=== PATIENT | female | born 1940 | race Caucasian/White ===

== ENCOUNTER 2017-11-10 11:27 | Emergency (ER) | payer MEDICARE, OTHER ==
[2017-11-10 11:35] VITALS: BP 122/67
--- NOTE | 2017-11-10 12:09 | EDM.PDOC ---
ED HPI GENERAL MEDICAL PROBLEM - General Chief Complaint: Cardiovascular Problem Stated Complaint: IN BY AMBULANCE Time Seen by Provider: 11/10/17 11:50 Source of Information: Reports: Patient History Limitations: Reports: No Limitations - History of Present Illness INITIAL COMMENTS - FREE TEXT/NARRATIVE: This 77 yo female patient was brought to the ED by [facility] due to an episode of syncope. The patient reports she was at the foot doctor this morning when she started to feel extremely warm, then she remembers someone getting her a wet towel. The patient reports the next thing she remembers is the ambulance taking her to the ED. The patient reports she has been under increased stress over the past month due to 2 hospitalizations of her and 1 hospitalization herself. The patient reports that she does not have a history of previous similar episodes. The patient reports she currently feels normal with no chest pain or other symptoms. Onset: Today Duration: Resolved Prior to Arrival Location: Reports: Generalized Quality: Reports: Other Severity: Moderate Improves with: Reports: None Worsens with: Reports: None Associated Symptoms: Reports: No Other Symptoms - Related Data Allergies Allergy/AdvReac Type Severity Reaction Status Date / Time Morpholine Analogues Allergy Change Verified 11/09/14 20:32 Mental Status Home Meds: Home Meds Aspirin [Adult Low Dose Aspirin EC] 81 mg PO DAILY 11/09/14 [History] Clopidogrel [Plavix] 75 mg PO DAILY 11/09/14 [History] Gabapentin 600 mg PO QID 11/09/14 [History] Nitroglycerin [Nitrostat] 1 tab SL ASDIRECTED PRN 11/09/14 [History] Metoprolol Tartrate [Lopressor] 12.5 mg PO BID 12/03/14 [History] Multivitamin [Daily Vitamin] 1 each PO DAILY 12/03/14 [History] atorvaSTATin [Lipitor] 20 mg PO BEDTIME 12/19/15 [History] Calcium Carbonate/Vitamin D3 [Calcium 600 + Vit D 200] 600 mg PO BID 11/10/16 [ History] Lisinopril 5 mg PO DAILY 11/10/16 [History] Isosorbide Mononitrate [Imdur] 15 mg PO DAILY 11/10/17 [History] Past Medical History HEENT History: Reports: Impaired Vision Cardiovascular History: Reports: High Cholesterol, Hypertension Musculoskeletal History: Reports: Fibromyalgia, Osteoarthritis - Past Surgical History HEENT Surgical History: Reports: Cataract Surgery Cardiovascular Surgical History: Reports: Coronary Artery Stent Other Female Surgeries/Procedures: bladder surgery Musculoskeletal Surgical History: Reports: Arthroscopic Knee Social & Family History - Family History Family Medical History: Noncontributory - Tobacco Use Smoking Status *Q: Never Smoker Second Hand Smoke Exposure: No - Caffeine Use Caffeine Use: Reports: Coffee - Recreational Drug Use Recreational Drug Use: No ED ROS GENERAL - Review of Systems Review Of Systems: ROS reveals no pertinent complaints other than HPI. ED EXAM, GENERAL - Physical Exam Exam: See Below Exam Limited By: No Limitations General Appearance: Alert, WD/WN, Mild Distress Eye Exam: Bilateral Eye: EOMI, Normal Inspection, PERRL Ears: Normal External Exam, Normal Canal, Hearing Grossly Normal, Normal TMs Nose: Normal Inspection, Normal Mucosa, No Blood Throat/Mouth: Normal Inspection, Normal Lips, Normal Teeth, Normal Gums, Normal Oropharynx, Normal Voice, No Airway Compromise Head: Atraumatic, Normocephalic Neck: Normal Inspection, Supple, Non-Tender, Full Range of Motion Respiratory/Chest: No Respiratory Distress, Lungs Clear, Normal Breath Sounds, No Accessory Muscle Use, Chest Non-Tender Cardiovascular: Normal Peripheral Pulses, Regular Rate, Rhythm, No Edema, No Gallop, No JVD, No Murmur, No Rub GI/Abdominal: Normal Bowel Sounds, Soft, Non-Tender, No Organomegaly, No Distention, No Abnormal Bruit, No Mass (Female) Exam: Deferred Rectal (Female) Exam: Deferred Back Exam: Normal Inspection, Full Range of Motion, NT Extremities: Normal Inspection, Normal Range of Motion, Non-Tender, Normal Capillary Refill, No Pedal Edema Neurological: Alert, Oriented, CN II-XII Intact, Normal Cognition, Normal Gait, Normal Reflexes, No Motor/Sensory Deficits Psychiatric: Normal Affect, Normal Mood Skin Exam: Warm, Dry, Intact, Normal Color, No Rash Lymphatic: No Adenopathy Course - Vital Signs Last Recorded V/S: Last Vital Signs Temp 36.0 C 11/10/17 11:31 Pulse 66 11/10/17 11:31 Resp 18 11/10/17 11:31 BP 122/67 11/10/17 11:31 Pulse Ox 97 11/10/17 11:31 Orthostatic Blood Pressure [ 138/70 Sitting] Orthostatic Blood Pressure [ 126/72 Standing] Orthostatic Blood Pressure [ 122/67 Supine] - Orders/Labs/Meds Orders: Active Orders 24 hr Category Date Time Status EKG Documentation Completion [RC] URGENT Care 11/10/17 11:39 Active Labs: Laboratory Tests 11/10/17 11/10/17 Range/Units 11:48 11:48 WBC 8.6 (5.0-10.0) 10^3/uL RBC 3.91 L (4.2-5.4) 10^6/uL Hgb 11.9 L (12.0-16.0) g/dL Hct 36.9 L (37.0-47.0) % MCV 94.4 D (80-100) fL MCH 30.4 (27.0-34.0) pg MCHC 32.2 L (33.0-35.0) g/dL Plt Count 238 (150-450) 10^3/uL Neut % (Auto) 77.5 H (42.2-75.2) % Lymph % (Auto) 14.5 L (20.5-50.1) % Frederick % (Auto) 6.2 (2-8) % Eos % (Auto) 1.2 (1.0-3.0) % Baso % (Auto) 0.6 (0.0-1.0) % Sodium 141 (135-145) mmol/L Potassium 3.7 (3.6-5.0) mmol/L Chloride 109 (101-111) mmol/L Carbon Dioxide 26.0 (21.0-31.0) mmol/L Anion Gap 9.7 BUN 23 H (7-18) mg/dL Creatinine 1.0 (0.6-1.3) mg/dL Est Cr Clr Drug Dosing 38.44 mL/min Estimated GFR (MDRD) 54 BUN/Creatinine Ratio 23.00 Glucose 121 H (74-105) mg/dL Calcium 8.9 (8.4-10.2) mg/dl Total Bilirubin 0.3 (0.2-1.0) mg/dL AST 26 (10-42) IU/L ALT 18 (10-60) IU/L Alkaline Phosphatase 53 (42-121) IU/L Troponin I < 0.02 (0.00-0.02) ng/ml Total Protein 6.6 L (6.7-8.2) g/dl Albumin 3.6 (3.2-5.5) g/dl Globulin 3.0 Albumin/Globulin Ratio 1.20 Departure - Departure Time of Disposition: 13:00 Disposition: Home, Self-Care 01 Condition: Fair Clinical Impression: Vasovagal syncope Instructions: Syncope, [id number] Forms: ED Department Discharge Care Plan Goals: The patient was advised of the examination, lab, EKG and x-ray results during the visit. The patient was encouraged to continue to monitor for any additional symptoms or further concerns. The patient should follow-up with her primary care facility for continued evaluation and further management. If the patient has any additional symptoms or concerns, the patient should visit her primary care facility or return to the emergency department. - My Orders Last 24 Hours: My Active Orders 11/10/17 11:39 EKG Documentation Completion [RC] URGENT - Assessment/Plan Last 24 Hours: My Active Orders 11/10/17 11:39 EKG Documentation Completion [RC] URGENT
[2017-11-10 12:14] LABS: ANION GAP 9.7; CHLORIDE,CL 109 mmol/L (101-111); SODIUM,NA 141 mmol/L (135-145)
--- NOTE | 2017-11-10 12:44 | CR ---
Clinical history: 77-year-old female who presents in the emergency department with syncopal episode. Interpretation: Normal cardiac silhouette without new signs of alveolar edema or dependent pleural ef fusion. Less than optimal inspiratory effort and some coarse accentuation of perihilar lung markings but ...n o new lung mass, focal lobar pneumonia, atelectasis/collapse or pneumothorax when compared November 11 exam. CONCLUSION: No acute new cardiopulmonary abnormality.
== END 2017-11-10 13:04 | disposition home or self-care (01) ==
LOC: DL.ED 11:27
DX: R55 Syncope and collapse (principal); I10 Essential (primary) hypertension; E78.00 Pure hypercholesterolemia, unspecified; Z79.82 Long term (current) use of aspirin; Z79.899 Other long term (current) drug therapy
CPT/HCPCS: 36415; 71045; 80053; 84484; 85025; 93005; 93010; 99284

== ENCOUNTER 2020-05-24 21:35 | Emergency (ER) | payer MEDICARE, OTHER ==
[2020-05-24 21:57] VITALS: BP 149/92; PULSE 81
--- NOTE | 2020-05-24 22:11 | EDM.PDOC ---
<Everton Colunga Natalya - Last Filed: 05/24/20 22:06> ED HPI GENERAL MEDICAL PROBLEM - General Chief Complaint: General Stated Complaint: BLOOD PRESSURE IS HIGH Time Seen by Provider: 05/24/20 22:06 Source of Information: Reports: Patient, RN History Limitations: Reports: No Limitations - History of Present Illness INITIAL COMMENTS - FREE TEXT/NARRATIVE: 80 y/o F c/o chest pain x2 days left side chest, constant, non radiating, 5/10. Pt just recently had to put her in a senior care and has been under a lot of stress. pt has taken 2 nitroglycerin tabs which pt reports helped her chest pain. Pt developed a triana after taking nitro. Hx of cardiac stents placed in 2014. Denies vision prob, db, neck or jaw pain, back pain, abd pn, recent trauma, NVD, sweating, fever, cough, chills. Duration: Day(s): Location: Reports: Chest Quality: Reports: Other (thightness) Severity: Mild Improves with: Reports: None Worsens with: Reports: None Associated Symptoms: Reports: No Other Symptoms Left Anterior Chest Pain Score (Numeric/FACES): 5 - Related Data Allergies Allergy/AdvReac Type Severity Reaction Status Date / Time Morpholine Analogues Allergy Change Verified 05/24/20 21:58 Mental Status Home Meds: Home Meds Aspirin [Adult Low Dose Aspirin EC] 81 mg PO DAILY 11/09/14 [History] Clopidogrel [Plavix] 75 mg PO DAILY 11/09/14 [History] Gabapentin 600 mg PO QID 11/09/14 [History] Nitroglycerin [Nitrostat] 1 tab SL ASDIRECTED PRN 11/09/14 [History] Metoprolol Tartrate [Lopressor] 12.5 mg PO BID 12/03/14 [History] Multivitamin [Daily Vitamin] 1 each PO DAILY 12/03/14 [History] atorvaSTATin [Lipitor] 20 mg PO BEDTIME 12/19/15 [History] Calcium Carbonate/Vitamin D3 [Calcium 600 + Vit D 200] 600 mg PO BID 11/10/16 [History] Lisinopril 5 mg PO DAILY 11/10/16 [History] Isosorbide Mononitrate [Imdur] 15 mg PO DAILY 11/10/17 [History] Past Medical History HEENT History: Reports: Impaired Vision Cardiovascular History: Reports: High Cholesterol, Hypertension Musculoskeletal History: Reports: Fibromyalgia, Osteoarthritis - Past Surgical History HEENT Surgical History: Reports: Cataract Surgery Cardiovascular Surgical History: Reports: Coronary Artery Stent Other Female Surgeries/Procedures: bladder surgery Musculoskeletal Surgical History: Reports: Arthroscopic Knee Other Musculoskeletal Surgeries/Procedures:: back surgery Social & Family History - Family History Family Medical History: No Pertinent Family History - Tobacco Use Tobacco Use Status *Q: Never Tobacco User Second Hand Smoke Exposure: No - Caffeine Use Caffeine Use: Reports: Coffee, Tea - Recreational Drug Use Recreational Drug Use: No ED ROS GENERAL - Review of Systems Review Of Systems: Comprehensive ROS is negative, except as noted in HPI. ED EXAM, GENERAL - Physical Exam Exam: See Below Exam Limited By: No Limitations General Appearance: Alert, WD/WN, No Apparent Distress Eye Exam: Bilateral Eye: PERRL Nose: Normal Inspection, Normal Mucosa, No Blood Throat/Mouth: Normal Inspection, Normal Lips, Normal Teeth, Normal Gums, Normal Oropharynx, Normal Voice, No Airway Compromise Head: Atraumatic, Normocephalic Neck: Normal Inspection, Supple, Non-Tender, Full Range of Motion Respiratory/Chest: No Respiratory Distress, Lungs Clear, Normal Breath Sounds, No Accessory Muscle Use, Chest Non-Tender Cardiovascular: Normal Peripheral Pulses, Regular Rate, Rhythm, No Edema, No Gallop, No JVD, No Murmur, No Rub Peripheral Pulses: 2+: Radial (L), Radial (R) GI/Abdominal: Normal Bowel Sounds, Soft, Non-Tender (Female) Exam: Deferred Rectal (Female) Exam: Deferred Back Exam: Normal Inspection, Full Range of Motion Extremities: Normal Inspection, Normal Range of Motion, Non-Tender, No Pedal Edema Neurological: Alert Psychiatric: Normal Affect, Normal Mood Skin Exam: Warm, Dry, Intact, Normal Color, No Rash Departure - Departure Disposition: Home, Self-Care 01 Clinical Impression: Reaction, situational, acute, to stress Chest pain Qualifiers: Chest pain type: unspecified Qualified Code(s): R07.9 - Chest pain, unspecified Insomnia Qualifiers: Insomnia type: adjustment Qualified Code(s): F51.02 - Adjustment insomnia - Discharge Information Forms: ED Department Discharge Additional Instructions: 1) rest 2) follow up with clinic for possible sleep meds 3) recheck if there is any change or concern. Sepsis Event Note (ED) - Evaluation Sepsis Screening Result: No Definite Risk <DuboseShiva - Last Filed: 05/24/20 22:50> Course - Vital Signs Last Recorded V/S: Last Vital Signs Temp 35.8 C L 05/24/20 21:44 Pulse 81 05/24/20 21:44 Resp 20 05/24/20 21:44 BP 149/92 H 05/24/20 21:44 Pulse Ox 99 05/24/20 21:44 - Orders/Labs/Meds Orders: Active Orders 24 hr Category Date Time Status EKG 12 Lead [EKG Documentation Completion] [RC] STAT Care 05/24/20 21:48 Active LORazepam [Ativan] Med 05/24/20 22:45 Once 1 mg PO ONETIME ONE Medication Orders Lorazepam (Ativan) 1 mg PO ONETIME ONE Stop: 05/24/20 22:46 Labs: Laboratory Tests 05/24/20 05/24/20 Range/Units 21:55 21:55 WBC 7.3 (5.0-10.0) 10^3/uL RBC 4.29 (4.2-5.4) 10^6/uL Hgb 13.1 (12.0-16.0) g/dL Hct 39.6 (37.0-47.0) % MCV 92.3 (80-100) fL MCH 30.5 (27.0-34.0) pg MCHC 33.1 (33.0-35.0) g/dL Plt Count 247 (150-450) 10^3/uL Neut % (Auto) 66.1 (42.2-75.2) % Lymph % (Auto) 20.1 L (20.5-50.1) % Keith % (Auto) 11.2 H (2-8) % Eos % (Auto) 1.8 (1.0-3.0) % Baso % (Auto) 0.8 (0.0-1.0) % Sodium 141 (136-145) mmol/L Potassium 3.6 (3.5-5.1) mmol/L Chloride 103 (98-107) mmol/L Carbon Dioxide 27 (21-32) mmol/L Anion Gap 14.6 H (7-13) mEq/L BUN 18 (7-18) mg/dL Creatinine 0.74 (0.55-1.02) mg/dL Est Cr Clr Drug Dosing 58.65 mL/min Estimated GFR (MDRD) > 60 BUN/Creatinine Ratio 24.3 (No establ ref range) Glucose 102 H (74-99) mg/dL Calcium 9.2 (8.5-10.1) mg/dL Total Bilirubin 0.2 (0.2-1.0) mg/dL AST 25 (15-37) U/L ALT 30 (14-59) U/L Alkaline Phosphatase 83 (46-116) U/L Troponin I < 0.017 (0.000-0.056) ng/mL Total Protein 7.4 (6.4-8.2) g/dL Albumin 4.0 (3.4-5.0) g/dL Globulin 3.4 Albumin/Globulin Ratio 1.2 Meds: Medications Generic Name Dose Route Start Last Admin Trade Name Freq PRN Reason Stop Dose Admin Lorazepam 1 mg 05/24/20 22:45 Ativan PO 05/24/20 22:46 ONETIME ONE - Re-Assessments/Exams Free Text/Narrative Re-Assessment/Exam: 05/24/20 22:46 results discussed with pt who is feeling better. states been really stressed over in senior care with brain cancer not responding to radiation. states her first also dies from cancer. has not been sleeping well and been too busy to edwin her PMD for some sleeping meds. Departure - Departure Time of Disposition: 22:48 Condition: Good Sepsis Event Note (ED) - Focused Exam Vital Signs: Vital Signs Temp Pulse Resp BP Pulse Ox 05/24/20 21:44 35.8 C L 81 20 149/92 H 99 - My Orders Last 24 Hours: My Active Orders 05/24/20 21:48 EKG 12 Lead [EKG Documentation Completion] [RC] STAT 05/24/20 22:45 LORazepam [Ativan] 1 mg PO ONETIME ONE - Assessment/Plan Last 24 Hours: My Active Orders 05/24/20 21:48 EKG 12 Lead [EKG Documentation Completion] [RC] STAT 05/24/20 22:45 LORazepam [Ativan] 1 mg PO ONETIME ONE
[2020-05-24 22:20] LABS: ANION GAP 14.6 mEq/L (7-13); CHLORIDE,CL 103 mmol/L (98-107); SODIUM,NA 141 mmol/L (136-145)
[2020-05-24] MEDS ORDERED: LORazepam 1 MG Tab PO ONE (22:45)
== END 2020-05-24 23:04 | disposition home or self-care (01) ==
LOC: DL.ED 21:35
DX: R07.9 Chest pain, unspecified (principal); F43.20 Adjustment disorder, unspecified; F51.02 Adjustment insomnia; E78.00 Pure hypercholesterolemia, unspecified; I10 Essential (primary) hypertension; M19.90 Unspecified osteoarthritis, unspecified site; Z79.82 Long term (current) use of aspirin; Z79.02 Long term (current) use of antithrombotics/antiplatelets; Z79.899 Other long term (current) drug therapy; Z88.5 Allergy status to narcotic agent
CPT/HCPCS: 36415; 80053; 84484; 85025; 93005; 99285; A9270; 99283

== ENCOUNTER 2021-09-08 18:13 | Emergency (ER) | payer MEDICARE, OTHER ==
[2021-09-08] MEDS ORDERED: Aspirin 81 MG Tab.Chew PO ONE (18:57)
[2021-09-08 19:05] LABS: ANION GAP 13.6 mEq/L (7-13)
[2021-09-08 19:22] VITALS: BP 125/77; PULSE 66
== END 2021-09-08 20:40 | disposition home or self-care (01) ==
LOC: DL.ED 18:13
DX: R07.89 Other chest pain (principal); I25.10 Atherosclerotic heart disease of native coronary artery without angina pectoris; E78.00 Pure hypercholesterolemia, unspecified; I10 Essential (primary) hypertension; Z79.899 Other long term (current) drug therapy; Z79.82 Long term (current) use of aspirin; Z88.6 Allergy status to analgesic agent
CPT/HCPCS: 36415; 71045; 80053; 84484; 85025; 85379; 85610; 93005; 93010; 99282; 99285-25; A9270-GY

== ENCOUNTER 2021-11-18 14:01 | Emergency (ER) | payer MEDICARE, OTHER ==
[2021-11-18 10:04] VITALS: BP 133/93; PULSE 64
[2021-11-18 10:25] LABS: ANION GAP 12.1 mEq/L (7-13)
[~2021-11-18 14:01] MED LIST: Acetaminophen 325 MG Tab PO ONE; LORazepam 0.5 MG Tab PO ONE
== END 2021-11-18 14:13 | disposition home or self-care (01) ==
LOC: DL.ED 14:01
DX: R07.89 Other chest pain (principal); F41.9 Anxiety disorder, unspecified; I25.10 Atherosclerotic heart disease of native coronary artery without angina pectoris; I10 Essential (primary) hypertension; E78.00 Pure hypercholesterolemia, unspecified; M19.90 Unspecified osteoarthritis, unspecified site; Z88.8 Allergy status to other drugs, medicaments and biological substances; Z79.82 Long term (current) use of aspirin; Z79.899 Other long term (current) drug therapy; Z20.822 Contact with and (suspected) exposure to COVID-19
CPT/HCPCS: 36415; 71045; 80053; 83605; 84484; 85025; 85379; 87040; 93005; 99285; A9270-GY; U0002

== ENCOUNTER 2022-02-10 18:30 | Emergency (ER) | payer MEDICARE, OTHER ==
[2022-02-10 18:04] VITALS: BP 145/89; PULSE 76
[2022-02-10] MEDS ORDERED: Acetaminophen/HYDROcodone 325-5 MG Tab PO ONE (18:31)
[2022-02-10 19:06] LABS: ANION GAP 10.9 mEq/L (7-13)
[2022-02-10] MEDS ORDERED: Acetaminophen/HYDROcodone 325-5 MG Tab ONE (20:06)
== END 2022-02-10 20:15 | disposition home or self-care (01) ==
LOC: DL.ED 18:30
DX: S43.081A Other subluxation of right shoulder joint, initial encounter (principal); S40.021A Contusion of right upper arm, initial encounter; I25.10 Atherosclerotic heart disease of native coronary artery without angina pectoris; E78.00 Pure hypercholesterolemia, unspecified; I10 Essential (primary) hypertension; Z88.6 Allergy status to analgesic agent; Z88.8 Allergy status to other drugs, medicaments and biological substances; Z79.82 Long term (current) use of aspirin; Z79.899 Other long term (current) drug therapy; W19.XXXA Unspecified fall, initial encounter
CPT/HCPCS: 36415; 73200; 80053; 85025; 85379; 99284; A9270

== ENCOUNTER → 2023-02-10 | Day surgery (SDC) | payer MEDICARE, OTHER ==
[~2023-02-10] MED LIST changes: -Acetaminophen 325 MG Tab PO ONE; +Dextrose 5%-0.45% NaCl 1,000 ML IV SCH; -LORazepam 0.5 MG Tab PO ONE; +Midazolam 1 MG/ML 2 ML SDV IV ONE; +Midazolam 1 MG/ML 2 ML SDV ONE; +fentaNYL 100 MCG/2 ML SDV IV ONE; +fentaNYL 100 MCG/2 ML SDV ONE
[2023-02-10 07:40] VITALS: BP 128/64; PULSE 57
== END | disposition home or self-care (01) ==
LOC: DL.ENDO 05:38
PROVIDERS: ATTEND Internal Medicine Gastroenterology
DX: K57.30 Diverticulosis of large intestine without perforation or abscess without bleeding (principal); I25.10 Atherosclerotic heart disease of native coronary artery without angina pectoris; E78.5 Hyperlipidemia, unspecified; M79.7 Fibromyalgia; K21.9 Gastro-esophageal reflux disease without esophagitis; I10 Essential (primary) hypertension; F41.1 Generalized anxiety disorder; G47.33 Obstructive sleep apnea (adult) (pediatric); E66.9 Obesity, unspecified; Z68.30 Body mass index [BMI] 30.0-30.9, adult; Z88.5 Allergy status to narcotic agent; Z88.8 Allergy status to other drugs, medicaments and biological substances; Z95.1 Presence of aortocoronary bypass graft; Z98.890 Other specified postprocedural states
CPT/HCPCS: 45378; J2250; J3010; J7042

== ENCOUNTER 2023-06-12 20:21 | Emergency (ER) | payer MEDICARE, OTHER ==
[2023-06-12] MEDS: Aspirin 81 MG Tab.Chew PO ONE (20:59)
[2023-06-12] MEDS: Sodium Chloride 0.9% 10 ML Syringe FLUSH PRN (21:00)
[2023-06-12 21:03] LABS: BASOPHILS PERCENT AUTO 0.9 % (0.0-1.0); EOSINOPHILS PERCENT AUTO 3.6 % (1.0-3.0); HEMATOCRIT 37.9 % (37.0-47.0); HEMOGLOBIN 12.3 g/dL (12.0-16.0); LYMPHOCYTES PERCENT AUTO 21.8 % (20.5-50.1); MEAN CORPUSCULAR HGB CONC 32.5 g/dL (33.0-35.0); MEAN CORPUSCULAR VOLUME 95.5 fL (80-100); MONOCYTES PERCENT AUTO 9.3 % (2-8); NEUTROPHILS PERCENT AUTO 64.4 % (42.2-75.2); PLATELET COUNT,PLT 231 10^3/uL (150-450); RED BLOOD CELL COUNT 3.97 10^6/uL (4.2-5.4); WHITE BLOOD CELL COUNT,WBC 6.4 10^3/uL (5.0-10.0)
[2023-06-12 21:16] LABS: ALBUMIN 3.5 g/dL (3.4-5.0); ANION GAP 11.7 mEq/L (7-13); BILIRUBIN TOTAL 0.3 mg/dL (0.2-1.0); BUN/CREATININE RATIO 27.9 (No establ ref range); CALCIUM 8.8 mg/dL (8.5-10.1); CREATININE 0.68 mg/dL (0.55-1.02); EST CRCL DRUG DOSING (CG) 51.32 mL/min; POTASSIUM,K 3.7 mmol/L (3.5-5.1); PROTEIN TOTAL,TP 7.1 g/dL (6.4-8.2)
[2023-06-12 21:24] LABS: INR 1.1 (0.9-1.2); PROTHROMBIN TIME 11.3 SEC (9.0-12.0); PTT,PARTIAL THROMBOPLSTIN TIME 31.9 SEC (22.0-34.0)
[2023-06-12 21:28] LABS: APPEARANCE,URINE CLEAR (CLEAR); BILIRUBIN,URINE NEGATIVE (NEGATIVE); COLOR,URINE YELLOW (YELLOW); GLUCOSE,URINE NEGATIVE (NEGATIVE); KETONES,URINE NEGATIVE (NEGATIVE); LEUKOCYTE ESTERASE,URINE TRACE (NEGATIVE); NITRITE,URINE NEGATIVE (NEGATIVE); OCCULT BLOOD,URINE NEGATIVE (NEGATIVE); PROTEIN,URINE NEGATIVE (NEGATIVE); UROBILINOGEN,URINE 0.2 mg/dL (0.2-1.0)
[2023-06-12 21:43] LABS: AMORPHOUS SEDIMENT,URINE FEW /HPF (NOT SEEN); BACTERIA,URINE RARE /HPF (0-FEW/HPF); EPITHELIAL CELLS,URINE RARE /HPF (NOT SEEN); MUCUS,URINE RARE /LPF (NOT SEEN); RBC,URINE 0-5 /HPF (0-5)
[2023-06-12] MEDS: Lidocaine 2% Viscous Solution 15 ML UD PO ONE (21:50)
[2023-06-12] MEDS: Aluminum Hydroxide/Magnesium Hydroxide/Simethicone Susp 30 ML Cup PO ONE (21:50)
[2023-06-12] MEDS: diphenhydrAMINE 12.5 MG/5 ML Liquid 5 ML UD Cup PO STA (21:50)
[2023-06-12 22:27] LABS: CORONAVIRUS COVID-19 NAA NEGATIVE (NEGATIVE); INFLUENZA A NAA NEGATIVE (NEGATIVE); INFLUENZA B NAA NEGATIVE (NEGATIVE); RESPIRATORY SYNCYTIAL VIR NAA NEGATIVE (NEGATIVE)
[2023-06-12] MEDS ORDERED: Iopamidol 612 MG/ML 100 ML Bottle IVPUSH ONE (22:55)
[2023-06-12] MEDS: Iopamidol 755 Mg/ML 100 ML Bottle IVPUSH ONE (23:23)
[2023-06-12] MEDS: Acetaminophen 500 MG Tab PO ONE (23:24)
[2023-06-12 23:40] VITALS: BP 140/79; PULSE 71
== END 2023-06-13 00:45 | disposition home or self-care (01) ==
LOC: DL.ED 20:21
DX: I25.111 Atherosclerotic heart disease of native coronary artery with angina pectoris with documented spasm (principal); I16.0 Hypertensive urgency; E78.00 Pure hypercholesterolemia, unspecified; Z95.1 Presence of aortocoronary bypass graft; I10 Essential (primary) hypertension; Z79.899 Other long term (current) drug therapy; Z79.82 Long term (current) use of aspirin; Z88.8 Allergy status to other drugs, medicaments and biological substances; Z88.5 Allergy status to narcotic agent
CPT/HCPCS: 0241U; 36415; 71045; 71275; 80053; 81001; 83735; 83880; 84484; 85025; 85379; 85610; 85730; 87086; 93005; 93010; 99284; 99285; A9270; Q9967; J3490

== ENCOUNTER 2024-08-24 10:19 | Emergency (ER) | payer MEDICARE, OTHER ==
[2024-08-24 10:34] LABS: EOSINOPHILS PERCENT AUTO 3.5 % (1.0-3.0); HEMATOCRIT 39.3 % (37.0-47.0); HEMOGLOBIN 12.6 g/dL (12.0-16.0); MEAN CORPUSCULAR HEMOGLOBIN 30.4 pg (27.0-34.0); MEAN CORPUSCULAR HGB CONC 32.1 g/dL (33.0-35.0); MEAN CORPUSCULAR VOLUME 94.9 fL (80-100); MONOCYTES PERCENT AUTO 10.1 % (2-8); NEUTROPHILS PERCENT AUTO 66.4 % (42.2-75.2); PLATELET COUNT,PLT 242 10^3/uL (150-450); RED BLOOD CELL COUNT 4.14 10^6/uL (4.2-5.4); WHITE BLOOD CELL COUNT,WBC 7.6 10^3/uL (5.0-10.0)
[2024-08-24] MEDS: Iopamidol 755 Mg/ML 100 ML Bottle IVPUSH ONE (10:51)
[2024-08-24 10:52] LABS: INR 1.1 (0.9-1.2); PROTHROMBIN TIME 11.2 SEC (9.0-12.0); PTT,PARTIAL THROMBOPLSTIN TIME 29.7 SEC (22.0-34.0)
[2024-08-24 10:57] LABS: A/G RATIO 1.1; ALANINE AMINOTRANSFERASE,ALT 22 U/L (14-59); ALBUMIN 3.5 g/dL (3.4-5.0); ALKALINE PHOSPHATASE 89 U/L (46-116); ANION GAP 15.5 mEq/L (7-13); ASPARTATE AMNIOTRANSFERASE,AST 17 U/L (15-37); BILIRUBIN TOTAL 0.5 mg/dL (0.2-1.0); BLOOD UREA NITROGEN,BUN 26 mg/dL (7-18); BUN/CREATININE RATIO 29.5 (No establ ref range); CALCIUM 8.8 mg/dL (8.5-10.1); CARBON DIOXIDE,CO2 26 mmol/L (21-32); CHLORIDE,CL 107 mmol/L (98-107); CREATININE 0.88 mg/dL (0.55-1.02); ESTIMATED GFR 66 mL/min (>=60); GLUCOSE RANDOM 112 mg/dL (70-99); MAGNESIUM 1.9 mg/dL (1.8-2.4); POTASSIUM,K 3.5 mmol/L (3.5-5.1); PROTEIN TOTAL,TP 6.7 g/dL (6.4-8.2); SODIUM,NA 145 mmol/L (136-145)
[2024-08-24 10:59] LABS: ETHANOL BLOOD MEDICAL < 3 mg/dL (0)
[2024-08-24 11:00] LABS: LACTIC ACID 2.4 mmol/L (0.4-2.0)
[2024-08-24 11:19] LABS: AMPHETAMINES,URINE NEGATIVE (NEGATIVE); BARBITURATES,URINE NEGATIVE (NEGATIVE); BENZODIAZEPINE,URINE NEGATIVE (NEGATIVE); MDMA (ECSTASY), URINE NEGATIVE (NEGATIVE); METHADONE,URINE NEGATIVE (NEGATIVE); METHAMPHETAMINES,URINE NEGATIVE (NEGATIVE); OPIATES,URINE NEGATIVE (NEGATIVE); OXYCODONE,URINE NEGATIVE (NEGATIVE); PHENCYCLIDINE,URINE NEGATIVE (NEGATIVE); TCA,URINE NEGATIVE (NEGATIVE)
[2024-08-24] MEDS: Tenecteplase 50 MG Kit IVPUSH ONE (11:31)
[2024-08-24 11:40] LABS: O2 DELIVERY DEVICE ROOM AIR
[2024-08-24 11:41] LABS: PCO2 VENOUS 46 mmHg (41-51); PH,VENOUS 7.38 (7.31-7.41); PO2 VENOUS 60 mmHg (35-42)
[2024-08-24 11:42] LABS: BASE EXCESS VENOUS 1.8 mmol/l ((-2)-(+3)); BICARBONATE,VENOUS 27 mmol/l (19-25); O2 SATURATION VENOUS 88.8 % (60-80)
[2024-08-24 12:29] VITALS: BP 175/94; PULSE 77
== END 2024-08-24 12:56 ==
LOC: DL.ED 10:19
DX: I63.132 Cerebral infarction due to embolism of left carotid artery (principal); I25.10 Atherosclerotic heart disease of native coronary artery without angina pectoris; E78.00 Pure hypercholesterolemia, unspecified; I10 Essential (primary) hypertension; Z88.5 Allergy status to narcotic agent; Z88.8 Allergy status to other drugs, medicaments and biological substances; Z79.82 Long term (current) use of aspirin; Z79.899 Other long term (current) drug therapy
CPT/HCPCS: 36415; 37195; 70450; 70496; 70498; 80053; 80305; 80307; 82803; 82947; 83605; 83735; 84484; 85025; 85610; 85730; 99285; C1758; J3101; Q9967

== ENCOUNTER 2024-12-18 10:25 | Emergency (ER) | payer MEDICARE, OTHER ==
[2024-12-18] MEDS: Lactated Ringers 1,000 ML IV ONE ×2 (10:55→12:50)
[2024-12-18 10:58] LABS: BASOPHILS PERCENT AUTO 0.7 % (0.0-1.0); EOSINOPHILS PERCENT AUTO 0.9 % (1.0-3.0); LYMPHOCYTES PERCENT AUTO 11.5 % (20.5-50.1); MONOCYTES PERCENT AUTO 7.1 % (2-8); NEUTROPHILS PERCENT AUTO 79.8 % (42.2-75.2); PLATELET COUNT,PLT 306 10^3/uL (150-450); RED BLOOD CELL COUNT 4.59 10^6/uL (4.2-5.4); WHITE BLOOD CELL COUNT,WBC 11.1 10^3/uL (5.0-10.0)
[2024-12-18 11:12] LABS: INR 1.4 (0.9-1.2)
[2024-12-18 11:19] LABS: A/G RATIO 1.1; ALANINE AMINOTRANSFERASE,ALT 30 U/L (14-59); ASPARTATE AMNIOTRANSFERASE,AST 37 U/L (15-37); BILIRUBIN TOTAL 0.7 mg/dL (0.2-1.0); BLOOD UREA NITROGEN,BUN 13 mg/dL (7-18); CARBON DIOXIDE,CO2 29 mmol/L (21-32); CHLORIDE,CL 105 mmol/L (98-107); CREATININE 1.03 mg/dL (0.55-1.02); ESTIMATED GFR 54 mL/min (>=60); GLUCOSE RANDOM 147 mg/dL (70-99); POTASSIUM,K 4.0 mmol/L (3.5-5.1); PROTEIN TOTAL,TP 7.8 g/dL (6.4-8.2); SODIUM,NA 144 mmol/L (136-145)
[2024-12-18] MEDS: Magnesium Sulfate 2 GM/50 mL 2 GM in Premix Bag 1 BAG IV ONE (11:28)
[2024-12-18] MEDS: fentaNYL 100 MCG/2 ML SDV IVPUSH ONE (11:28)
[2024-12-18] MEDS: Metoprolol Tartrate 5 MG/5 ML SDV IVPUSH ONE (14:15)
[2024-12-18] MEDS ORDERED: Iopamidol 755 Mg/ML 100 ML Bottle IVPUSH ONE (16:48)
[2024-12-18 17:01] VITALS: BP 116/80; PULSE 106
== END 2024-12-18 18:20 ==
LOC: DL.ED 10:25
DX: I48.91 Unspecified atrial fibrillation (principal); I25.10 Atherosclerotic heart disease of native coronary artery without angina pectoris; E78.00 Pure hypercholesterolemia, unspecified; I10 Essential (primary) hypertension; M19.90 Unspecified osteoarthritis, unspecified site; Z95.5 Presence of coronary angioplasty implant and graft; Z88.8 Allergy status to other drugs, medicaments and biological substances; Z79.82 Long term (current) use of aspirin; Z79.01 Long term (current) use of anticoagulants; Z79.899 Other long term (current) drug therapy
CPT/HCPCS: 36415; 71045; 73030; 80053; 84484; 85025; 85610; 93005; 93010; 96361; 96365; 96367; 96375; 99285; A9270; J3010; J3475; J3490; J7120